=== PATIENT | female | born 2000 | race Caucasian/White ===

== ENCOUNTER 2018-08-22 08:11 | Inpatient (IN) | payer OTHER ==
--- NOTE | 2018-08-22 08:57 | OBHP ---
Datetime: 08/22/2018 08:52 IP Adm Impression: Term, intrauterine ; Active labor IP Admit Plan: Admit to unit; Initiate Section protocol Admit Comment, IP Provider: at 39.2weeks came with c/o ctxs started 5 am, irrg, no vb , lof+fm obhx c/x 1 pmh den med pnv all cepo psh c/s soch de ve /-2 a/p at 39.2weks previous v/s admit to l_d npo/ivf labs pain ma skin abxs anthesia aware Pelvic Type - PN: Adequate Extremities - PN: Normal Abdomen - PN: Normal Back - PN: Normal Breast - PN: Normal Lungs - PN: Normal Heart - PN: Normal Thyroid - PN: Normal Neurologic - PN: Normal HEENT - PN: Normal General - PN: Normal FHR - Baseline A Provider: 130 Contraction Comments Provider: jimmyg IP Hx Assessment: The History has been Reviewed and is Current EGA AdmitDate IP: 39.2 Vital Signs Provider: Reviewed; Within Normal Limits IP Chief Complaint: Uterine contractions NICHD Variability Prov Fetus A: Moderate 6-25bpm NICHD Accel Fetus A IP Provider: 10X10 FHR Category Provider Fetus A: Category I Dilatation, Provider: 2 Effacement, Provider: 60 Station, Provider: -2 Genitourinary Exam: Normal DTRs - PN: Normal
[2018-08-22] MEDS ORDERED: Sodium Citrate/Citric Acid 15 ml Sol PO ONE ×2 (08:58→17:58)
[2018-08-22] MEDS ORDERED: Lactated Ringer's 1,000 ML IV ONE (08:58)
[2018-08-22] MEDS ORDERED: Clindamycin 300 MG in Sodium Chloride 0.9% 50 ML IVPB ONE (09:00)
[2018-08-22 09:21] VITALS: BMI 33.7
[2018-08-22 09:37] LABS: BASO % 0.1 % (0.0-2.0); EOS % 0.4 % (0.0-4.0); HEMOGLOBIN 13.8 g/dL (11.0-16.0); LYMPH # 1.4 K/uL (1.0-4.3); LYMPH % 15.7 % (20.0-40.0); MEAN CELL VOLUME 93.1 fL (81.0-99.0); MEAN CORPUSCULAR HGB CONC 34.4 g/dL (33.0-37.0); MEAN PLATELET VOLUME 7.5 fL (7.2-11.7); MONO # 0.6 K/uL (0.0-0.8); MONO % 6.8 % (0.0-10.0); RBC 4.3 Mil/uL (3.80-5.20); RED CELL DISTRIBUTION WIDTH 13.6 % (11.5-14.5); WHITE BLOOD COUNT 9.1 K/uL (4.8-10.8)
[2018-08-22] MEDS ORDERED: Lactated Ringer's 1,000 ML IV SCH ×2 (09:45→18:00)
[2018-08-22 09:46] LABS: SQUAMOUS EPITHIAL 5 /hpf (0-5); URINE BACTERIA RARE (<OCC); URINE BILIRUBIN NEGATIVE (NEGATIVE); URINE BLOOD NEGATIVE (NEGATIVE); URINE CLARITY Hazy (Clear); URINE COLOR Yellow (YELLOW); URINE GLUCOSE (UA) NORMAL (Normal); URINE LEUKOCYTE ESTERASE TRACE Leu/uL (Negative); URINE PROTEIN NEGATIVE (NEGATIVE); URINE UROBILINOGEN NORMAL mg/dL (0.2-1.0)
[2018-08-22 09:59] LABS: ALB/GLOB RATIO 1.4 (1.0-2.1); ALBUMIN 4.2 g/dL (3.5-5.0); ALT/SGPT 18 U/L (9-52); AST/SGOT 13 U/L (14-36); BLOOD UREA NITROGEN 12 mg/dL (7-17); CALCIUM 9.7 mg/dl (8.6-10.4); GFR NON-AFRICAN AMERICAN > 60
[2018-08-22] MEDS ORDERED: Sodium Citrate/Citric Acid 15 ml Sol ONE (10:36)
[2018-08-22] MEDS ORDERED: Oxytocin 20 units in LR 2,000 ML IV ONE (10:38)
--- NOTE | 2018-08-22 20:06 | OBDS ---
DELIVERY PERSONNEL Delivery Doctor: Dr Herbert Scrfloridalma Nurse: Eva Aviles OBT Career Information Specialist: SALLY Mcleod Anesthesiologist: Dr Koenig MATERNAL INFORMATION Delivery Anesthesia: Spinal Medications in Delivery: pitocin Estimated Blood Loss (ml): 700 Placenta Cultured: No Maternal Complications: None Provider Comments: dense scarring from subcutaneous until fascia. bladder adhesed high in incision. LABOR SUMMARY EDC: 08/27/2018 00:00 No. Babies in Womb: 1 Attempted: No Labor Anesthesia: None LABOR INFORMATION Reason for Induction: Not Applicable Onset of Labor: 08/22/2018 05:00 Group B Beta Strep: Negative Steroids Given: None Reason Steroids Not Administered: Not Applicable MEMBRANES Membranes Rupture Method: Artificial Rupture of Membranes: 08/22/2018 18:54 Length of Rupture (hrs): 0.02 Amniotic Fluid Color: Clear Amniotic Fluid Amount: Moderate Amniotic Fluid Odor: None STAGES OF LABOR Stage 3 hrs: 0 Stage 3 min: 1 Total Time in Labor hrs: 13 Total Time in Labor min: 56 CSECTION DELIVERY Primary Indication: Repeat Elective Other Primary Indication: previous c/s CSection Urgency: Elective CSection Incidence: Repeat Labor: Labor Elective: Elective CSection Incision: Lower Uterine Transverse BABY A INFORMATION Infant Delivery Date/Time: 08/22/2018 18:55 Method of Delivery: Born in Route : No : N/A Forceps: N/A Vacuum Extraction: N/A Shoulder Dystocia : No SHOULDER DYSTOCIA BABY A Infant Delivery Date/Time: 08/22/2018 18:55 PRESENTATION/POSITION BABY A Presentation: Cephalic Cephalic Presentation: Vertex Breech Presentation: N/A PLACENTA INFORMATION BABY A Placenta Delivery Time : 08/22/2018 18:56 Placenta Method of Delivery: Manual Removal Placenta Status: Delivered SCORES BABY A Heart Rate 1 min: >100 bpm Resp Effort 1 min: Good Cry Reflex Irritability 1 min: Cough or Sneeze or Pulls Away Muscle Tone 1 min: Active Motion Color 1 min: Body [place], Extremities Blue Resuscitation Effort 1 min: Tactile Stimulation SCORE 1 MIN: 9 Heart Rate 5 min: >100 bpm Resp Effort 5 min: Good Cry Reflex Irritability 5 min: Cough or Sneeze or Pulls Away Muscle Tone 5 min: Active Motion Color 5 min: Body [place], Extremities Blue Resuscitation Effort 5 min: Tactile Stimulation SCORE 5 MIN: 9 INFORMATION BABY A Gestational Age at Delivery: 39.2 Gestational Status: Term Infant Outcome : Liveborn Condition : Stable Infant Sex: Male IDENTIFICATION/MEDS BABY A ID Band Number: [id number] ID Band Location: Left Leg; Left Arm Sensor Applied: Yes Sensor Number: [id number] Sensor Location : Cord Clamp Vitamin K Given : Aquamephy[place] 1 mg IM; Left Thigh WEIGHT/LENGTH BABY A Infant Birthweight (gms): 3770 Weight (lb): 8 Weight (oz): 5 Infant Length Inches: 20.30 Length cms: 51.6 CORD INFORMATION BABY A No. Cord Vessels: 3 Nuchal Cord : Around Neck x1, Loose Cord Blood Taken: Yes Suction: Mouth; Nose ASSESSMENT BABY A Complications: None Physical Findings at Delivery: Within Normal Limits Infant Respirations: Appears Normal Installation Supervisor/ALS Called : No Infant Care By: Dr Conde Transferred To: Remains with Mother
[2018-08-22] MEDS ORDERED: DiphenhydrAMINE 50 mg/ml Inj IVP STA (21:00)
[2018-08-22] MEDS: oxyCODONE 5 mg Immediate Release Tab PO PRN (23:15)
[2018-08-23] MEDS ORDERED: Morphine 1 mg/ml preservative-free Inj(Duramorph) ONE (07:13)
[2018-08-23 07:38] LABS: MEAN CELL VOLUME 94.2 fL (81.0-99.0); MEAN CORPUSCULAR HEMOGLOBIN 31.9 pg (27.0-31.0); MEAN CORPUSCULAR HGB CONC 33.9 g/dL (33.0-37.0); MEAN PLATELET VOLUME 7.5 fL (7.2-11.7); RBC 3.67 Mil/uL (3.80-5.20); RED CELL DISTRIBUTION WIDTH 13.5 % (11.5-14.5); WHITE BLOOD COUNT 11.5 K/uL (4.8-10.8)
[2018-08-23 07:42] LABS: HEMOGLOBIN 11.7 g/dL (11.0-16.0)
[2018-08-23] MEDS: Prenatal Multivit/Folic Acid/Iron Tab PO SCH (09:55)
[2018-08-23] MEDS: oxyCODONE 5 mg Immediate Release Tab PO PRN (18:50)
[2018-08-24] MEDS: oxyCODONE 5 mg Immediate Release Tab PO PRN ×2 (00:56→07:44)
[2018-08-24] MEDS: Prenatal Multivit/Folic Acid/Iron Tab PO SCH (09:49)
--- NOTE | 2018-08-24 18:11 | OBPPN ---
Datetime: 08/24/2018 18:09 PP Nausea Prov: Denies PP Flatus Prov: Yes PP BM Prov: No PP Breasts Prov: Normal PP Heart Prov: Normal PP Lungs Prov: Normal PP Abdomen/Uterus Prov: Normal PP Lochia Prov: Normal PP Vulva/Perineum Prov: Normal PP CVA Tenderness Prov: Normal PP Extremities Prov: Normal PP C/S Incision Prov: Normal PP Progress Prov: Not Applicable PP Impression Prov: Normal progression PP Plan Prov: Discharge PP Progress Note Prov: normal POD#2, stable for discharge Vital Signs Provider PP: Reviewed; Within Normal Limits
--- NOTE | 2018-08-24 18:13 | OBDCSUM ---
Datetime: 08/24/2018 18:10 Discharged to, Provider: Home Follow up at, Provider: neil Bautista Instr Activity: Normal activity Disch Instr Diet: Regular Discharge Instructions, Provider: Routine instructions given Discharge Diagnosis, Provider: Term Delivered Discharge Time: 08/24/2018 18:10 Follow up in weeks, Provider: 1wk Disch Referrals: None Contraception discussed, Prov: Yes Disch Activity Restrictions: No exercising; No lifting; No driving; Minimize walking; Minimize stair -climbing; No sexual activity; Nothing in vagina - [place], tampons, douche Contraception after Delivery: Undecided
[2018-08-24] MEDS ORDERED: Influenza Vaccine 60 mcg/0.5 mL SYR (4YR UP) IM ONE (19:30)
[2018-08-25 03:25] VITALS: BP 116/78; PULSE 92; RESP 20; TEMP 98; O2SAT 99
== END 2018-08-24 21:00 | disposition home or self-care (01) | DRG 788 ==
LOC: C.EROB 08:11 → C.4D 09:01 → UNDODISIN 12:16 → C.4M 22:46
PROVIDERS: ADMIT Obstetrics & Gynecology; ATTEND Obstetrics & Gynecology
PROC: 10D00Z1 Extraction of Products of Conception, Low, Open Approach (ICD-10-PCS; principal; 2018-08-22)
DX: O34.211 Maternal care for low transverse scar from previous cesarean delivery (principal); O69.81X0 Labor and delivery complicated by cord around neck, without compression, not applicable or unspecified; Z3A.39 39 weeks gestation of pregnancy; Z37.0 Single live birth